=== PATIENT | female | born 1980 | race Caucasian/White ===

== ENCOUNTER → 2021-06-15 09:44 | Outpatient (BNVA) | payer SELFPAY | PROVIDERS: Family Provider Nurse Practitioner Family; PCP Nurse Practitioner Family; Visit Provider Nurse Practitioner Family | DX: G43.909 Migraine, unspecified, not intractable, without status migrainosus (principal); E78.5 Hyperlipidemia, unspecified; F32.9 Major depressive disorder, single episode, unspecified; R53.83 Other fatigue; F41.9 Anxiety disorder, unspecified; E66.9 Obesity, unspecified; M54.16 Radiculopathy, lumbar region; G47.00 Insomnia, unspecified; Z86.39 Personal history of other endocrine, nutritional and metabolic disease; Z12.39 Encounter for other screening for malignant neoplasm of breast; I10 Essential (primary) hypertension | CPT/HCPCS: 80053; 82306; 82607; 84443; 85025 ==

== ENCOUNTER 2022-01-15 13:36 | Outpatient (CLI) | payer OTHER, SELFPAY ==
--- NOTE | 2022-01-15 13:47 | MM_ITS ---
WS: [id number] BILATERAL 3D TOMOSYNTHESIS DIGITAL SCREENING MAMMOGRAPHY WITH CAD CLINICAL INFORMATION: SCREENING HISTORY: Screening mammogram. Pain and soreness RIGHT breast COMPARISON: 015 TECHNIQUE: Bilateral CC and MLO views. FINDINGS: Scattered fibroglandular densities bilaterally. No suspicious focal mass, asymmetry, calcifications, or architectural distortion. No evidence of malignancy. MM/[place] [id number] IMPRESSION: BI-RADS: 1-Negative FOLLOW UP: 1 Year Follow-up Recommend return to annual screening mammography.
== END 2022-01-15 13:37 | disposition home or self-care (01) ==
LOC: RAD 13:42
PROVIDERS: PCP Nurse Practitioner Family; Visit Provider Nurse Practitioner Family
DX: Z12.31 Encounter for screening mammogram for malignant neoplasm of breast (principal)
CPT/HCPCS: 77063; 77067

== ENCOUNTER → 2022-02-13 11:23 | Outpatient (BNVA) | payer OTHER, SELFPAY | PROVIDERS: PCP Nurse Practitioner Family; Visit Provider Nurse Practitioner Family | DX: E78.5 Hyperlipidemia, unspecified (principal); I10 Essential (primary) hypertension; F41.9 Anxiety disorder, unspecified; F32.9 Major depressive disorder, single episode, unspecified; Z90.710 Acquired absence of both cervix and uterus; G43.909 Migraine, unspecified, not intractable, without status migrainosus; N32.81 Overactive bladder; G56.01 Carpal tunnel syndrome, right upper limb; Z86.39 Personal history of other endocrine, nutritional and metabolic disease | CPT/HCPCS: 80053; 80061 ==

== ENCOUNTER 2022-08-30 14:25 | Outpatient (CLI) | payer BC, MEDICAID, SELFPAY ==
--- NOTE | 2022-08-30 14:33 | XR_ITS ---
WS: [id number] Right foot, 3 views, 08/30/2022 Clinical Data: right heel pain Comparison: Right foot, 07/24/2016. Findings: No fractures or dislocations are seen. No bone destruction or erosion is noted. The joint spaces and soft tissues are normal. There is a plantar spur. XR/XR foot RT min 3V* [id number] Impression: Negative right foot.
== END 2022-08-30 14:26 | disposition home or self-care (01) ==
PROVIDERS: PCP Nurse Practitioner Family; Visit Provider Nurse Practitioner Family
DX: M79.671 Pain in right foot (principal)
CPT/HCPCS: 73630

== ENCOUNTER 2022-09-12 13:22 | Outpatient (CLI) | payer BC, MEDICAID, SELFPAY ==
--- NOTE | 2022-09-12 13:33 | MR_ITS ---
WS: [id number] MRI BRAIN WITH AND WITHOUT CONTRAST HISTORY: DEMYELINATING DZ OF CENTRAL NERVOUS SYSTEM COMPARISON: 02/19/2017 TECHNIQUE: Multiplanar imaging performed through the brain with MultiHance 20 ml's IV. No acute infarcts or hemorrhage. Focal minimal T2 hyperintensity along the LEFT callosal septal inter face, anterior. This may have been present on the prior study but not visualized without high resolut ion imaging being performed at that time. There is a very slight increase in the focal FLAIR and T2 s ignal hyperintensity abutting the occipital horn of the posterior RIGHT lateral ventricle with centra l necrosis. No enhancement. No additional hyperintensities identified. No susceptibility artifacts or prior lacunar infarcts. Ventricles and extra-axial spaces are normal. Clivus and pituitary gland are normal. Visualized posterior fossa and brainstem are also normal. Visualized brainstem is normal. Postcontrast images are negative for masses or vascular malformations. No enhancement of the demyelin ating plaques. Dural venous sinuses are normal. Paranasal sinuses: Well aerated with no significant disease. Mastoid air cells: Normal. Calvarium and scalp: Normal. MR/MR head wo/w con [id number] IMPRESSION: 1. No active areas of demyelination. No enhancing hyperintensities surrounding the ventricles. 2. Slight increase in size of the LEFT occipital periventricular white matter lesion since 2017 but no enhancement. 3. Focal nonenhancing T2 hyperintense activity along the LEFT callosal septal interface.
[2022-09-12] MEDS: gadobenate dimeglumine 20 mL vial IV (14:21)
== END 2022-09-12 13:23 | disposition home or self-care (01) ==
LOC: RAD 13:24
PROVIDERS: PCP Nurse Practitioner Family; Visit Provider Specialist
DX: G37.9 Demyelinating disease of central nervous system, unspecified (principal)
CPT/HCPCS: 70553; A9577

== ENCOUNTER → 2022-12-17 13:01 | Outpatient (BNVA) | payer BC, MEDICAID, SELFPAY | PROVIDERS: PCP Nurse Practitioner Family; Visit Provider Nurse Practitioner Family | DX: F41.9 Anxiety disorder, unspecified (principal); I10 Essential (primary) hypertension; F32.9 Major depressive disorder, single episode, unspecified; E78.5 Hyperlipidemia, unspecified | CPT/HCPCS: 80053; 80061; 84443 ==

== ENCOUNTER → 2023-08-05 12:55 | Outpatient (BNVA) | payer BC, MEDICAID, SELFPAY | PROVIDERS: PCP Nurse Practitioner Family; Visit Provider Podiatrist Foot & Ankle Surgery | DX: S82.832G Other fracture of upper and lower end of left fibula, subsequent encounter for closed fracture with delayed healing; X58.XXXD Exposure to other specified factors, subsequent encounter; Y99.0 Civilian activity done for income or pay | CPT/HCPCS: 73630 ==

== ENCOUNTER 2025-03-13 20:21 | Emergency (ER) | payer OTHER, SELFPAY ==
[2025-03-13] VITALS (7 sets, daily range): BP systolic 122–178; BP diastolic 87–140; PULSE 88–108; RESP 16–17; TEMP 36.7; O2SAT 94–98; BMI 37.1
--- OUTSIDE RECORDS SUMMARY | 2025-03-13 20:27 | XMS_ITS | Data Portability ---
Author Organization [facility] Address [address] [place] [address] Assessment No assessment recorded. Plan of Treatment Reminders Order Date Submit Date Provider Last Modified By Organization Details Last Modified Time Details Appointments None record ed. Lab None record ed. Referral None record ed. Procedures None record ed. Surgeries None record ed. Imaging XR, ankle, 3 or more view 023 05/01/20 [email or web address] [facility] ([facility]), [address] [place] [address], [phone], 11:10:39 Medication Orders None record ed. Patient TargetsNo targets recorded. Patient InstructionsNo instructions recorded. Reason for Referral None Reported. Results Created Date Observation Date Name Description Value Unit Range Abnormal Flag Note LastModifiedBy Organization Detail LastModifiedTime 05/01/2005/01/2023 urina lysis , compl ete color yellow Not Available [facility]) [address] [place], [address], 05/01/2023 16:10:01 05/01/20 23 05/01/2023 urina lysis , compl ete clarity cloudy clear Not Available [facility] ([facility]) [address] [place], [address], 05/01/2023 16:10:01 05/01/20 23 05/01/2023 urina lysis , compl ete glucose negati ve negati ve Not Available [facility] ([facility]) [address] [place], [address], 05/01/2023 16:10:01 05/01/20 23 05/01/2023 urina lysis , compl ete bilirubin 1+ negati ve abnormal Not Available [facility] ([facility]) [address] [place], [address], 05/01/2023 16:10:01 05/01/20 23 05/01/2023 urina lysis , compl ete ketones trace negati ve abnormal Not Available [facility] ([facility]) [address] [place], [address], 05/01/2023 16:10:01 05/01/20 23 05/01/2023 urina lysis , compl ete specific gravity 1.030 1.005- 1.025 abnormal Not Available [facility] ([facility]) [address] [place], [address], 05/01/2023 16:10:01 05/01/20 23 05/01/2023 urina lysis , compl ete pH 5.0 5.0-7. 0 Not Available [facility] ([facility]) [address] [place], [address], 05/01/2023 16:10:01 05/01/20 23 05/01/2023 urina lysis , compl ete protein 2+ abnormal Not Available [facility] ([facility]) [address] [place], [address], 05/01/2023 16:10:01 05/01/20 23 05/01/2023 urina lysis , compl ete uro 0.2 Not Available [facility] ([facility]) [address] [place], [address], 05/01/2023 16:10:01 05/01/20 23 05/01/2023 urina lysis , compl ete nitrate negati ve negati ve Not Available [facility] ([facility]) [address] [place], [address], 05/01/2023 16:10:01 05/01/20 23 05/01/2023 urina lysis , compl ete blood negati ve negati ve Not Available [facility] ([facility]) [address] [place], [address], 05/01/2023 16:10:01 05/01/20 23 05/01/2023 urina lysis , compl ete leukocytes negati ve negati ve Not Available [facility] ([facility]) [address] [place], [address], 05/01/2023 16:10:01 05/01/20 23 05/01/2023 urina lysis , compl ete WBC 1-3 0 abnormal Not Available [facility] ([facility]) [address] [place], [address], 05/01/2023 16:10:01 05/01/20 23 05/01/2023 urina lysis , compl ete RBC 0-1 0 Not Available [facility] ([facility]) [address] [place], [address], 05/01/2023 16:10:01 05/01/20 23 05/01/2023 urina lysis , compl ete epi cells 1-3 0 abnormal Not Available [facility] ( [facility]) [address] [place], [address], 05/01/2023 16:10:01 05/01/20 23 05/01/2023 urina lysis , compl ete bacteria 1+ mixed stevan abnormal Not Available [facility] ([facility]) [address] [place], [address], 05/01/2023 16:10:01 05/01/20 23 05/01/2023 urina lysis , compl ete other 3+ amorph ous abnormal Not Available [facility] ([facility]) [address] [place], [address], 05/01/2023 16:10:01 05/05/20 23 05/01/2023 XR, ankle , 3 or more view No observ ation record ed. [email or web address], [address], 05/05/2023 11:48:47 Result Notes None recorded. Medical Equipment None Reported. Allergies Allergen ID Allergen Name Allergen Category Reaction Reaction Severity Criticality Documentation Date Start Date Code Code System Note Provider Name and Address Organization Details Recorded Time 78319 morphine medicatio n Not available Not available Not available 05/01/2023 7052 RxNorm FRED gao [facility], Monique 3 15:36:01 Medications Name Sig Start Date Stop Date Status Note LastModified by Organization Details LastModified Time tolterodine ER 4 mg capsule,exte nded release 24 hr TAKE 1 CAPSULE BY MOUTH ONCE DAILY active Not Available Not Available No t Available phentermine 37.5 mg tablet TAKE 1 TABLET BY MOUTH ONCE DAILY active Not Available Not Available No t Available cyanocobalam in (vit B-12) 1,000 mcg/mL injection solution INJECT 1ML INTRAMUSCUL PHU FOR 4 WEEKS THEN ONCE MONTHLY THEREAFTER active Not Available Not Available N ot Available lisinopril 10 mg tablet TAKE 1 TABLET BY MOUTH ONCE DAILY active Not Available Not Available No t Available BD Luer-Kathe Syringe 3 mL 25 gauge x 1 USE DIRECTED WITH B-12 SHOT active Not Available Not Available No t Available buspirone 7.5 mg tablet TAKE 1 TABLET BY MOUTH TWICE DAILY . APPOINTMENT REQUIRED FOR FUTURE REFILLS active Not Available Not Available No t Available hydrochlorot hiazide 25 mg tablet TAKE 1 TABLET BY MOUTH ONCE DAILY active Not Available Not Available No t Available estradiol 0.5 mg tablet TAKE 1 TABLET BY MOUTH ONCE DAILY active Not Available Not Available No t Available lisinopril 10 mg-hydrochlo rothiazide 12.5 mg tablet TAKE 1 TABLET BY MOUTH ONCE DAILY active Not Available Not Available No t Available methylpredni solone 4 mg tablets in a dose pack TAKE BY MOUTH DIRECTED ON INSIDE OF PACKAGE active Not Available Not Available No t Available metformin ER 500 mg tablet,exten ded release 24 hr TAKE 1 TABLET BY MOUTH ONCE DAILY active Not Available Not Available No t Available progesterone micronized 100 mg capsule TAKE 1 CAPSULE BY MOUTH AT BEDTIME active Not Available Not Available No t Available escitalopram 10 mg tablet TAKE 1 TABLET BY MOUTH ONCE DAILY active Not Available Not Available No t Available escitalopram 20 mg tablet TAKE 1 TABLET BY MOUTH ONCE DAILY active Not Available Not Available No t Available rosuvastatin 20 mg tablet TAKE 1 TABLET BY MOUTH ONCE DAILY active Not Available Not Available No t Available cholecalcife rol (vitamin D3) 1,250 mcg (50,000 unit) capsule TAKE 1 CAPSULE BY MOUTH ONCE A WEEK active Not Available Not Available No t Available Vitals Date Recorded Oxygen saturation Oxygen saturation in Arterial blood by Pulse oximetry Heart rate Respiratory rate Body temperature Provider Name and Address Organization Details Last Updated DateTime 3 98 % 98 % 115 /min 20 /min 97.1 [degF] FRED [facility] 3 15:35:47 Social History None recorded. Functional Status None recorded. Mental Status None recorded. Family History Nothing Reported. Medical History No medical history recorded. Gynecological HistoryNo gynecological history recorded. Obstetrics History GPAL:G 0 P 0 0 0 0 Immunizations Vaccine Type Date Status Note Provider Nam e and Address Organization Details Recorded Time MMR 5 completed [facility] 05/01/2023 15:35:52 [facility] 7 [facility] 05/01/2023 15:35:52 Tdap 7 completed [facility] 05/01/2023 15:35:52 DTP 5 completed [facility], [facility] 05/01/2023 15:35:52 polio, unspecified formulation 5 completed [facility] GREEN murray, [facility] 05/01/2023 15:35:52 Td (adult), 2 Lf tetanus toxoid, preservative free, adsorbed 3 completed [facility], [facility] 05/01/2023 15:35:52 Hep A-Hep B 8 completed [facility] null, [facility] 05/01/2023 15:35:52 Hep A-Hep B 7 [facility] 05/01/2023 15:35:52 Hep A-Hep B 7 [facility] 05/01/2023 15:35:52 Past Encounters Encounter ID Performer Location Encounter Start Date Encounter Closed Date Diagnosis/Indication Diagnosis SNOMED-CT Code Diagnosis ICD10 Code Diagnosis Note [id number] JIM CARBALLO [facility] ([facility]) [address] [place] [phone] 05/01/2023 14:54:20 05/01/2023 19:23:31 Pain of left ankle joint 2960996025 4043472 M25.572 Suspected avulsion fracture of the left fibula. Will send x-ray for over read. Patient given script for walking boot and crutches. Should wear walking boot and weight bear as tolerated until x-ray results are back. RICE treatment recommende d. Can take tylenol/ib uprofen as needed for pain. No work until official x-ray results are back. Will follow up pending x-ray results. Blood in urine 38689130 R31.9 Will check UA today. Will call with results. Reassured with no pain or bruising from fall. Encouraged patient to increase water intake and continue to monitor urine for blood. If persistent for the next 2 days, should follow up with PCP as patient does have history of kidney issues. Patient verbalizes understand ing. Health Concerns Section Related Observation LastModified by Organization Detai ls LastModified Time None Recorded Concern Status LastModified by Organization Details LastModified Time None Recorded Advance Directives Directive None Recorded Payers Insurance Date Sequence Insurance Name Policy Number Policy Nielsen Covered Member ID Nielsen Member ID Guarantor Name 05/10/2023 ANGELES GIL [id number] Aleena Finch Notes Date Note Type Note Provider Name and Address Organization Details Recorded Time 05/01/2023 text/html Musculoskeletal PainReported bypatient.Location:pa in is not radiating; right ankle Quality:sharp Severity:worsening;in terferes with sleep;interferes with work/school Duration:present <1 month Timing:constant; sudden Context:trauma Alleviating Factors:rest Aggravating factors:movement/posi tioning Associated Symptoms:no fever; no weak limbs; no tingling; no numbness of the legs/feet Patient is a 42 year old female who reports to the walk in clinic today for left ankle pain. Patient reports she fell while at work playing a game today, twisting her left ankle. Has been unable to bear weight since. Also reports blood in her urine after the fall. Denies any flank pain today. RAUL ABAD, HEALTH INSURANCE SALES AGENT-C [address] [place] [address], [phone], [facility], [place] 05/01/2023 15:54:52 OBGyn Episode No OBEpisode recorded.
--- OUTSIDE RECORDS SUMMARY | 2025-03-13 20:27 | XMS_ITS | Patient Health Record ---
Author Organization [facility] Address [address] [place], [place] [address] Care Team Providers Care Lehr Attendant Name Role Phone Lea TO, Bret Unavailable [phone] Priya Fletcher Unavailable Unavailable Allergies Allergen (clinical drug ingredient) Drug/Non Drug Allergy documented on EMR Reaction Allergy Type Onset Date Status Endocet itching Drug Allergy Active morphine morphine itcing, redness Drug Allergy A ctive Reason For Referral No Information Medications Medication SIG (Take, Route, Frequency, Duration) Notes Start Date End Date Status topiramate 100 mg 1 tab orally 2 times a day Active FLUoxetine 20 mg 1 tab orally once a day Unknown tiZANidine 2 mg 1 tab po orally TID prn spasm Active estradiol 0.5 mg 1 tab orally once a day Unknown Vitamin D3 2000 intl units 1 tab orally once a day Unknown topiramate 100 mg 1 tab orally 2 times a day Active venlafaxine 150 mg 1 cap orally once a day Active hydrochlorothiazide-lisinop ril 12.5 mg-10 mg 1 tab orally once a day Active SUMAtriptan 100 mg 1 tab orally once Unknown acetaminophen-hydrocodone 325 mg-7.5 mg 1 tab orally QID prn pain (hold within 4H of planned sleep) Active Reglan 10 mg 1 tab orally 4 times a day (before meals and at bedtime) Unknown progesterone 100 mg 1 cap orally once a day (at bedtime) Unknown lisinopril 20 mg 1 tab orally once a day Unknown Hair, Skin, Nails 5 mg 1 cap orally once a day Unknown gabapentin 300 mg 1 cap orally 3 times a day Unknown Social History Tobacco Use: Social History Observation Description Date Details (start date - stop date) Never Smoker NA - NA alcohol Question Answer Notes Did you have a drink contain ing alcohol in the past year? Yes How often did you have a dri nk containing alcohol in the past year? Two to four times a month (2 points) How many drinks did you have on a typical day when you were drinking in the past year? 1 or 2 (0 points) How often did you have six o r more drinks on one occasion in the past year? Never (0 points) Points 2 Interpretation Negative Tobacco use: Question Answer Notes : nonsmoker Problems Problem Type SNOMED Code ICD Code Onset Dates Problem Status W/U Status Risk Notes Problem Solitary sacroiliitis (609543787) Sacroiliitis (720.2) Active confirmed Problem Coccydynia (24387150) Coccydynia (724.79) Active confirmed Problem Spasm (02281252) Muscle spasm (728.85) Active confirmed Problem Low back pain (412369406) Low back pain (724.2) Active confirmed Problem Displacement of lumbar intervertebral disc without myelopathy (00581582) Lumbar (w/out myelopathy) intervertebral disc disorder (722.10) Active confirmed Problem Long-term drug therapy (878104884) LONG-TERM USE MEDS NEC (V58.69) Active confirmed r/o substance abuse Problem Anxiety state (615434255) Anxiety State, other, specified: procedure related (300.09) Active confirmed Problem Solitary sacroiliitis (916320754) Sacroiliitis (720.2) Active confirmed Problem Lumbosacral spondylosis without myelopathy (85750782) Lumbosacral spondylosis without myelopathy (721.3) Active confirmed Problem Solitary sacroiliitis (308912992) Sacroiliitis, not elsewhere classified (M46.1) Active confirmed Problem Low back pain (145627612) Low back pain (M54.5) Active confirmed Problem Lumbosacral spondylosis without myelopathy (87183584) Spondylosis without myelopathy or radiculopathy, lumbar region (M47.816) Active confirmed Problem High risk drug monitoring status (024363092) meterman (current) use of opiate analgesic (Z79.891) Active confirmed Problem Anxiety disorder (829782019) Other specified anxiety disorders (F41.8) Active confirmed Problem Hypersomnia (58048563) Hypersomnia, unspecified (G47.10) Active confirmed Problem Obstructive sleep apnea syndrome (47935323) Obstructive sleep apnea (adult) (pediatric) (G47.33) Active confirmed Problem Right hip pain (256450241454451) Pain in right hip (M25.551) Active confirmed Problem Acquired spondylolisthesis (214809837) Spondylolisthesi s, lumbar region (M43.16) Active confirmed Problem Radiculopathy due to lumbar intervertebral disc disorder (528210590020433) Intervertebral disc disorders with radiculopathy, lumbar region (M51.16) Active confirmed Problem Lumbar radiculopathy (301106020) Radiculopathy, lumbar region (M54.16) Active confirmed Problem Myalgia (51068635) Myalgia (M79.1) Active confi rmed Problem Headache (35416898) Headache (R51) Active confi rmed Problem Jaw pain (926919189) Jaw pain (R68.84) Active confirmed Problem Long-term current use of drug therapy (213859279) 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 helper (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) drug therapy (Z79.899) Active confirmed Problem Muscle pain (78788092) Myalgia, other site (M79.18) Active confirmed Plan Of Treatment No Information Insurance Providers Payer Name Payer Address Payer Phone Subscriber Number Group Number Insured Name Patient Relationship to Insured Coverage Start Date Coverage End Date [employer] [facility] [address] [place] [phone] [id number] Aleena Finch Self - patient is the insured Medical (General) History Medical History History ICD Code Hypertension Palpitations Anxiety disorder Hip pain, right Tachycardia Sciatica Hyperlipidemia Low back pain with radiation Tear of right infraspinatus Tear of right supraspinatus tendon Bilateral leg paresthesia 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 Milo Crook, 12/18/17 Hospitalization History Reason Date(Month/Year) Childbirth, 1998, 2001, 2004
--- NOTE | 2025-03-13 20:41 | ECG_ITS ---
[facility] 2025-[facility]13 Pat Name: Aleena Sanches Department: Room: Gender: Female Disease Management Nurse: : 1980 Requested By: Sameer Pickett Order Number: [id number] Casie MD: Jaxon Oneil M.D. Measurements Intervals [place] Rate: 102 P: 42 VA: 176 QRS: 57 QRSD: 92 T: 28 QT: 329 QTc: 430 Interpretive Statements SINUS TACHYCARDIA POSSIBLE LEFT ATRIAL ENLARGEMENT [-0.1mV P-WAVE IN V1/V2] No previous ECG available for comparison Electronically Signed On 03-17-2025 09:10:40 CDT by Jaxon Oneil M.D. [email or web address]
--- NOTE | 2025-03-13 20:41 | XRR_ITS ---
PROCEDURE INFORMATION: Exam: XR Chest Exam date and time: 03/13/2025 9:05 PM Age: 44 years old Clinical indication: Dyspnea TECHNIQUE: Imaging protocol: Radiologic exam of the chest. Views: 1 view. COMPARISON: No relevant prior studies available. FINDINGS: Lungs: Unremarkable. No consolidation. Pleural spaces: Unremarkable. No pleural effusion. No pneumothorax. Heart/Mediastinum: Unremarkable. No cardiomegaly. Bones/joints: Unremarkable. XR/XR chest 1V portable [id number] IMPRESSION: No acute findings.
--- NOTE | 2025-03-13 20:41 | CTR_ITS ---
PROCEDURE INFORMATION: Exam: CT Head Without Contrast Exam date and time: 03/13/2025 9:50 PM Age: 44 years old Clinical indication: Weakness, extremity; Right; C/O RT upper ext. Numbness. ; Additional info: Right arm numbness TECHNIQUE: Imaging protocol: Computed tomography of the head without contrast. Radiation optimization: All CT scans at this facility use at least one of these dose optimization techniques: automated exposure control; mA and/or kV adjustment per patient size (includes targeted exams where dose is matched to clinical indication); or iterative reconstruction. COMPARISON: MR head wo/w con [id number] 09/12/2022 1:54 PM RADIATION DOSE METRICS: Total DLP (mGy-cm): 1046.78 FINDINGS: Brain: Normal. No hemorrhage. Unremarkable white matter. No mass effect. Cerebral ventricles: No ventriculomegaly. Paranasal sinuses: Visualized sinuses are unremarkable. No fluid levels. Mastoid air cells: Visualized mastoid air cells are well aerated. Bones: Unremarkable. No acute fracture. Soft tissues: Unremarkable. CT/CT head wo con* [id number] IMPRESSION: No acute intracranial abnormality.
[2025-03-13 20:55] LABS: Basophils # 0.1 10^3/uL (0.0-0.1); Basophils % 0.6 %; Eosinophils # 0.2 10^3/uL (0.0-0.8); Eosinophils % 1.7 %; Hematocrit 42.3 % (36-47); Lymphocytes # 3.7 10^3/uL (0.8-4.8); Lymphocytes % 38.2 %; Mean Corpuscular HGB Conc 34.3 g/dL (30-55); Mean Corpuscular Hemoglobin 31.3 pg (27-33); Mean Corpuscular Volume 91.2 fl (85-98); Mean Platelet Volume 10.3 fL (7.4-10.4); Monocytes # 0.7 10^3/uL (0.2-0.9); Monocytes % 7.2 %; Neutrophils % 52.1 %; Nucleated Red Blood Cells % 0 %; Platelet Count 325 10^3/cmm (157-399); Red Blood Count 4.64 10^6/uL (3.85-5.65); Red Cell Distribution Width 11.8 % (12.1-15.1); White Blood Count 9.59 10^3/uL (3.29-11.43)
[2025-03-13 21:12] LABS: Alanine Aminotransferase 39 U/L (0-33); Albumin Level 4.2 g/dL (3.5-5.2); Alkaline Phosphatase 126 U/L (35-105); Anion Gap 17.5 (5-19); Aspartate Amino Transferase 27 U/L (0-32); Blood Urea Nitrogen 14 mg/dL (6-20); Calcium 9.4 mg/dL (8.5-10.5); Carbon Dioxide 25 mmol/L (22-29); Chloride 102 mmol/L (98-107); Globulin 3.3 g/dL (1.3-4.6); Glucose 107 mg/dL (65-115); Osmolality Calculated 293 mOsm/kg (285-295); Potassium 3.5 mmol/L (3.5-5.1); Sodium 141 mmol/L (136-145); Total Bilirubin 0.3 mg/dL (0.15-1.2); Total Protein 7.5 g/dL (6.6-8.7)
--- NOTE | 2025-03-13 21:25 | ED_ITS ---
Documented by User: Sameer Pickett MD 03/19/25 16:45 HPI - Neuro Symptoms/Deficit 2 General: Chief Complaint: Neuro Symptoms/Deficit Stated Complaint: R arm numbness Time Seen by Provider: 03/13/25 20:29 History of Present Illness: Chief complaint is numbness in the right arm. Patient states that she has a history of carpal tunnel on her right arm. She states that sometimes she will wake up and have numbness and tingling in her right hand and difficulty with her load out person. She states that usually goes away after she gets up. She states yesterday morning she woke up and had the same sensation. She states she has some numbness in her right hand and some tingling and she felt like was a little harder to load out person things than normal. She states that it did not go away however and she knows she had a little numbness in her forearm distally just proximal to the wrist as well. She states she decided she should come get checked out. She states the arm is not weak although she states her load out person is not quite as strong as it normally is but otherwise the arm itself is not weak she says. She denies any headache or neck pain. No chest pain or chest discomfort. She states that she does have some slight shortness of breath that she gets when she talks a lot which she states she always thought was because she was just heavyset. She states she has had that for a long time but she has noticed a little bit more for the last week. No pleurisy. No history of PE or DVT. No cough. No hormone therapy. No history of heart problems. No history of asthma or COPD. No black or bloody stools. No cough or hemoptysis. No abdominal pain vomiting or diarrhea. She states that she has not noticed any numbness in her face or legs or weakness anywhere else. No change in vision. No trouble with balance. She states she does have hypertension but she has been out of her medications for at least a month and is not currently taking any medications. Related Data Home Medications ?Medication ?Instructions ?Recorded ?Confirmed buspirone 7.5 mg tablet tab PO 01/21/23 11/27/23 cholecalciferol (vitamin D3) 1,250 ea PO 01/21/2311/13 mcg (50,000 unit) capsule escitalopram oxalate 20 mg tablet ea PO 01/21/2311/26 Previous Rx's ?Medication ?Instructions ?Recorded galcanezumab-gnlm 120 mg/mL 120 mg SUBCUT ONCE #1 mL 0 12/10/22 subcutaneous pen injector (Emgality Pen) galcanezumab-gnlm 120 mg/mL 240 mg (2 mL) SUBCUT ONCE #1 mL 12/10/22 subcutaneous pen injector (Emgality Pen) hydrochlorothiazide 25 mg tablet 25 mg PO DAILY 90 day s #90 tabs 12/17/22 lisinopril 10 mg tablet See Rx Instructions .Route 0 05/12/23 .COMPLEX #30 tabs cyclobenzaprine 10 mg tablet 10 mg PO TID PRN muscle s pasm #30 11/27/23 tabs prednisone 20 mg tablet 60 mg (3 x 20 mg) PO DAILY 5 days 11/27/23 #15 tabs aspirin 81 mg chewable tablet 81 mg PO DAILY #30 tabs 03/13/25 hydrochlorothiazide 25 mg tablet 25 mg PO QAM #30 tabs 03/13/25 lisinopril 10 mg tablet 10 mg PO DAILY #30 tabs 02/14 06/09 Allergies Allergy/AdvReac Type Severity Reaction Status Date / Time Opioids - Morphine Analogues Allergy unknown Verified 11/27/23 10:02 [facility] ED 2 PFSH: Medical History Depression Anxiety Sleep apnea with use of continuous positive airway pressure (CPAP) Insomnia Hypertension Hyperlipidemia Surgical History History of hysterectomy History of carpal tunnel surgery Family History Other Cancer Chronic kidney disease (CKD) Dementia Diabetes Hyperlipidemia Hypertension Social History Smoking and tobacco/nicotine status: never used tobacco/nicotine Alcohol intake: never Substance/Drug Use: never Physical Exam 2 Narrative: EXAM NARRATIVE: Patient sitting up very talkative mildly anxious but no acute distress otherwise. Pupils equal reactive to light. Grossly intact visual petersen. Normal conjunctiva. Full range ocular motion. No facial droop. No drift in her arms or legs. She has intact sensation to light touch over her face and trunk but she reports slight decrease sensation over the distal right forearm and right hand compared to the left. She states she is uncertain but there may be a slight stronger sensation on the left leg than the right leg with light touch to the right leg. No tenderness over her neck. Her neck is supple. No vertebral tenderness of her back. Heart is regular rate and rhythm. Lung sounds are clear. No increased work of breathing. She is talking at length in full sentences. No accessory muscle use. Abdomen soft nontender. Extremities warm well-perfused. No calf tenderness or pitting edema. Intact pulse in the right foot dorsalis pedis and right radial artery. Course 2 Vital Signs: Vital signs: Vital Signs Temperature 98.0 F 03/13/25 20:29 Pulse Rate 88 03/13/25 23:40 Respiratory Rate 16 03/13/25 23:40 Blood Pressure 122/87 03/13/25 23:40 Pulse Oximetry 98 03/13/25 23:40 Oxygen Delivery Me thod Room Air 03/13/25 22:30 MDM - Neuro Symptoms/Deficit Medical Decision Making Patient is alert oriented talkative complaining of numbness and tingling in her right hand. She did not notice any in her leg however on exam she states it does seem like it may be slightly stronger on the left leg compared to the right leg which she is uncertain. I have examined her multiple areas of her right and left leg and she changes her mind several times during the exam and is uncertain if there is any asymmetry. She has no asymmetry on her face. She has no drift in her arms or legs and no discernible weakness in her hands with load out person. She moves her neck and shoulder and elbow freely and denies any pain in her neck head shoulder elbow. Certainly stroke considered with right arm numbness and reported some difficulty with load out person strength however this has been a process she is experienced in the past with the carpal tunnel but this was more persistent. Nerve impingement in her neck shoulder elbow wrist or other area considered. Stroke in the differential. Electrolyte abnormality, referred numbness from cardiac ischemia, broad differential. She denies any chest pain or chest discomfort or upper back ache or discomfort to suggest acute cardiac ischemia. Patient EKG is ordered and shows to my interpretation sinus tachycardia with rate [address] segment changes. Patient did report some mild shortness of breath over the last week when she is talking she notices it. None here currently. PE would be unlikely based on exam and history. She denies pleurisy or recent immobility or leg pain or swelling. Will obtain CT of the head. Patient not a TNK candidate or thrombectomy candidate with last known well 2 nights ago. Will check CBC CMP to check electrolytes and hemoglobin. Will screen her troponin and a single negative troponin with more than 2 days of symptoms would make cardiac ischemia very unlikely. Patient's white count returned normal. Electrolytes do not show significant acute abnormality to explain her symptoms. Her creatinine was not significant elevated. Glucose was 107. Patient states she has decided she wants to go home. I recommended admission to the hospital for further blood pressure control and management, neurologic evaluation MRI of the brain and further evaluation of other potential causes of her symptoms. Patient thinks me but she declines admission and states that she wants to go home. She states she has not noticed any numbness or tingling in her leg and she thinks that is just something old probably from a pinched nerve and does not think that it is anything like her arm and hand. She states her hand symptoms are exactly like her carpal tunnel syndrome that she has had many times before and she will have to wear her brace when it flares up like this. She states she had surgery on her left hand because of this. She states she just got worried because her blood pressure medicine was out and she knows her blood pressure runs high and she states she had a little bit of the numbness she felt in her wrist as well and her hand numbness was not going away so she states she decided to come get checked out. I advised patient however that this could be a warning sign and a mild stroke and she could subsequently have a more serious stroke. Also advised other potential causes of her symptoms. CHF, PE, MD, stroke, hypertensive crisis, nerve impingement in the neck shoulder elbow, among others. Patient thanks me but she wants outpatient management. She states she has a brace and she can start wearing it. I advised her to follow-up with her surgeon who did surgery on her left hand in case she does have worsening carpal tunnel or nerve entrapment. Advised to return if she changes her mind for any reason. If no evidence of acute process on CT will start her back on lisinopril and hydrochlorothiazide which she has been off of for more than a month. I advise close monitoring of her blood pressure and close follow- up with her doctor for further evaluation and management. Patient capable and informed understands limits of ED evaluation and reasoning for recommended admission for further testing and treatment and evaluation. She understands I cannot exclude stroke. I recommend she start taking baby aspirin daily and talk to her doctor about other medications for cholesterol and her blood pressure and continued monitoring. Will start her on short course of steroids as well. Patient endorsed to Dr. Menezes at [phone]. Lab Data 03/13/25 20:45 03/13/25 20:[address] 03/13/25 20:41 IMPRESSION: No acute intracranial abnormality. Chest X-Ray 03/13/25 22:09 IMPRESSION: No acute findings. Laboratory Results WBC 9.59 10^3/uL (3.29-11.43) 03/13/25 20:45 RBC 4.64 10^6/uL (3.85-5.65) 03/13/25 20:45 Hgb 14.50 g/dL (11.27-16.99) 03/13/25 20:45 Hct 42.3 % (36-47) 03/13/25 20:45 MCV 91.2 fl (85-98) 03/13/25 20:45 MCH 31.3 pg (27-33) 03/13/25 20:45 MCHC 34.3 g/dL (30-55) 03/13/25 20:45 RDW 11.8 % (12.1-15.1) L 03/13/25 20:45 Plt Count 325 10^3/cmm (157-399) 03/13/25 20:45 MPV 10.3 fL (7.4-10.4) 03/13/25 20:45 Neut % (Auto) 52.1 % 03/13/25 20:45 Lymph % (Auto) 38.2 % 03/13/25 20:45 Young % (Auto) 7.2 % 03/13/25 20:45 Eos % (Auto) 1.7 % 03/13/25 20:45 Baso % (Auto) 0.6 % 03/13/25 20:45 Neut # (Auto) 5.00 10^3/uL (1.8-7.7) 03/13/25 20:45 Lymph # (Auto) 3.7 10^3/uL (0.8-4.8) 03/13/25 20:45 Young # (Auto) 0.7 10^3/uL (0.2-0.9) 03/13/25 20:45 Eos # (Auto) 0.2 10^3/uL (0.0-0.8) 03/13/25 20:45 Baso # (Auto) 0.1 10^3/uL (0.0-0.1) 03/13/25 20:45 Nucleated RBC % (auto) 0 % 03/13/25 20:45 Nucleated RBCs # 0.0 /100WBC 03/13/25 20:45 Sodium 141 mmol/L (136-145) 03/13/25 20:45 Potassium 3.5 mmol/L (3.5-5.1) 03/13/25 20:45 Chloride 102 mmol/L (98-107) 03/13/25 20:45 Carbon Dioxide 25 mmol/L (22-29) 03/13/25 20:45 Anion Gap 17.5 (5-19) 03/13/25 20:45 BUN 14 mg/dL (6-20) 03/13/25 20:45 Creatinine 0.9 mg/dL (0.5-0.9) 03/13/25 20:45 GFR Calculation 68.0 mL/min (90-130) L 03/13/25 20:45 Glucose 107 mg/dL (65-115) 03/13/25 20:45 Calculated Osmolality 293 mOsm/kg (285-295) 03/13/25 20:45 Calcium 9.4 mg/dL (8.5-10.5) 03/13/25 20:45 Total Bilirubin 0.3 mg/dL (0.15-1.2) 03/13/25 20:45 AST 27 U/L (0-32) 03/13/25 20:45 ALT 39 U/L (0-33) H 03/13/25 20:45 Alkaline Phosphatase 126 U/L (35-105) H 03/13/25 20:45 Troponin T Baseline 9 ng/L (0-10) 03/13/25 22:07 Total Protein 7.5 g/dL (6.6-8.7) 03/13/25 20:45 Albumin 4.2 g/dL (3.5-5.2) 03/13/25 20:45 Globulin 3.3 g/dL (1.3-4.6) 03/13/25 20:45 Discharge Plan Discharge Patient Disposition: Home Clinical Impression: Hypertensive urgency, Numbness and tingling in right hand Condition: Stable Prescriptions: New hydrochlorothiazide 25 mg tablet 25 mg PO QAM Qty: 30 0RF lisinopril 10 mg tablet 10 mg PO DAILY Qty: 30 0RF aspirin 81 mg tablet,chewable 81 mg PO DAILY Qty: 30 0RF No Action Emgality Pen 120 mg/mL pen injector 240 mg SUBCUT ONCE Qty: 1 0RF Rx Instructions: INJECT INITIAL LOADING DOSE (240MG /2ML) FOR FIRST MONTH. Emgality Pen 120 mg/mL pen injector 120 mg SUBCUT ONCE Qty: 1 2RF Rx Instructions: TAKE ONCE A MONTH FOR FOLLOWING MONTHS buspirone 7.5 mg tablet PO escitalopram oxalate 20 mg tablet PO cholecalciferol (vitamin D3) 1,250 mcg (50,000 unit) capsule PO hydrochlorothiazide 25 mg tablet 25 mg PO DAILY 90 Days Qty: 90 0RF cyclobenzaprine 10 mg tablet 10 mg PO TID PRN (Reason: muscle spasm) Qty: 30 0RF prednisone 20 mg tablet 60 mg PO DAILY 5 Days Qty: 15 0RF lisinopril 10 mg tablet See Rx Instructions .ROUTE .COMPLEX Qty: 30 0RF Dose Instruction: Take 1 tablet by mouth once daily Rx Instructions: Take 1 tablet by mouth once daily Discharge Orders: Discharge ED (Routine); Ordered 03/13/25 Ordered By: Lev Menezes Referrals: Qiana Larkin WHNP [Primary Care Provider, [employer]] Patient Instructions: Patient Portal & Jadiel Instructions Activity Restrictions/Additional Instructions: As discussed I recommend further evaluation and treatment of your hypertension and evaluation of your symptoms. Please return if you change your mind for any reason. Please return immediately if concerning headache, new numbness weakness or tingling in your arms or legs, change in vision, chest pain shortness of breath or headache, fever, vomiting, worsening weakness in your hand, any worse or concerns. Please follow-up promptly with your primary care physician for further blood pressure management and evaluation of your symptoms. Please follow-up with your physician who manages your carpal tunnel for further evaluation of your right hand numbness as well. No repetitive use of the right hand. Use your brace as directed. Follow-up on your test results with your doctor. Monitor your blood pressure daily and follow-up to recheck your blood pressure with your doctor. Please come back immediately if you change your mind for any reason. Follow-up with your doctor this week. Please call for appointment as soon as possible this week. 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 [employer] Fwd Documented by User: Lev Menezes, DO 03/14/25 02:57 HPI - Neuro Symptoms/Deficit 2 General: Chief Complaint: Neuro Symptoms/Deficit Stated Complaint: R arm numbness Time Seen by Provider: 03/13/25 20:29 Related Data Home Medications ?Medication ?Instructions ?Recorded ?Confirmed buspirone 7.5 mg tablet tab PO 01/21/23 11/27/23 cholecalciferol (vitamin D3) 1,250 ea PO 01/21/2311/13 mcg (50,000 unit) capsule escitalopram oxalate 20 mg tablet ea PO 01/21/2311/26 Previous Rx's ?Medication ?Instructions ?Recorded galcanezumab-gnlm 120 mg/mL 120 mg SUBCUT ONCE #1 mL 0 12/10/22 subcutaneous pen injector (Emgality Pen) galcanezumab-gnlm 120 mg/mL 240 mg (2 mL) SUBCUT ONCE #1 mL 12/10/22 subcutaneous pen injector (Emgality Pen) hydrochlorothiazide 25 mg tablet 25 mg PO DAILY 90 day s #90 tabs 12/17/22 lisinopril 10 mg tablet See Rx Instructions .Route 0 05/12/23 .COMPLEX #30 tabs cyclobenzaprine 10 mg tablet 10 mg PO TID PRN muscle s pasm #30 11/27/23 tabs prednisone 20 mg tablet 60 mg (3 x 20 mg) PO DAILY 5 days 11/27/23 #15 tabs aspirin 81 mg chewable tablet 81 mg PO DAILY #30 tabs 03/13/25 hydrochlorothiazide 25 mg tablet 25 mg PO QAM #30 tabs 03/13/25 lisinopril 10 mg tablet 10 mg PO DAILY #30 tabs 02/14 06/09 Allergies Allergy/AdvReac Type Severity Reaction Status Date / Time Opioids - Morphine Analogues Allergy unknown Verified 11/27/23 10:02 PFSH ED 2 PFSH: Medical History Depression Anxiety Sleep apnea with use of continuous positive airway pressure (CPAP) Insomnia Hypertension Hyperlipidemia Surgical History History of hysterectomy History of carpal tunnel surgery Family History Other Cancer Chronic kidney disease (CKD) Dementia Diabetes Hyperlipidemia Hypertension Social History Smoking and tobacco/nicotine status: never used tobacco/nicotine Alcohol intake: never Substance/Drug Use: never Course 2 Vital Signs: Vital signs: Vital Signs Temperature 98.0 F 03/13/25 20:29 Pulse Rate 88 03/13/25 23:40 Respiratory Rate 16 03/13/25 23:40 Blood Pressure 122/87 03/13/25 23:40 Pulse Oximetry 98 03/13/25 23:40 Oxygen Delivery Me thod Room Air 03/13/25 22:30 MDM - Neuro Symptoms/Deficit Medical Decision Making Patient is alert oriented talkative complaining of numbness and tingling in her right hand. She did not notice any in her leg however on exam she states it does seem like it may be slightly stronger on the left leg compared to the right leg which she is uncertain. I have examined her multiple areas of her right and left leg and she changes her mind several times during the exam and is uncertain if there is any asymmetry. She has no asymmetry on her face. She has no drift in her arms or legs and no discernible weakness in her hands with load out person. She moves her neck and shoulder and elbow freely and denies any pain in her neck head shoulder elbow. Certainly stroke considered with right arm numbness and reported some difficulty with load out person strength however this has been a process she is experienced in the past with the carpal tunnel but this was more persistent. Nerve impingement in her neck shoulder elbow wrist or other area considered. Stroke in the differential. Electrolyte abnormality, referred numbness from cardiac ischemia, broad differential. She denies any chest pain or chest discomfort or upper back ache or discomfort to suggest acute cardiac ischemia. Patient EKG is ordered and shows to my interpretation sinus tachycardia with rate [address] segment changes. Patient did report some mild shortness of breath over the last week when she is talking she notices it. None here currently. PE would be unlikely based on exam and history. She denies pleurisy or recent immobility or leg pain or swelling. Will obtain CT of the head. Patient not a TNK candidate or thrombectomy candidate with last known well 2 nights ago. Will check CBC CMP to check electrolytes and hemoglobin. Will screen her troponin and a single negative troponin with more than 2 days of symptoms would make cardiac ischemia very unlikely. Patient's white count returned normal. Electrolytes do not show significant acute abnormality to explain her symptoms. Her creatinine was not significant elevated. Glucose was 107. Patient states she has decided she wants to go home. I recommended admission to the hospital for further blood pressure control and management, neurologic evaluation MRI of the brain and further evaluation of other potential causes of her symptoms. Patient thinks me but she declines admission and states that she wants to go home. She states she has not noticed any numbness or tingling in her leg and she thinks that is just something old probably from a pinched nerve and does not think that it is anything like her arm and hand. She states her hand symptoms are exactly like her carpal tunnel syndrome that she has had many times before and she will have to wear her brace when it flares up like this. She states she had surgery on her left hand because of this. She states she just got worried because her blood pressure medicine was out and she knows her blood pressure runs high and she states she had a little bit of the numbness she felt in her wrist as well and her hand numbness was not going away so she states she decided to come get checked out. I advised patient however that this could be a warning sign and a mild stroke and she could subsequently have a more serious stroke. Also advised other potential causes of her symptoms. CHF, PE, MD, stroke, hypertensive crisis, nerve impingement in the neck shoulder elbow, among others. Patient thanks me but she wants outpatient management. She states she has a brace and she can start wearing it. I advised her to follow-up with her surgeon who did surgery on her left hand in case she does have worsening carpal tunnel or nerve entrapment. Advised to return if she changes her mind for any reason. If no evidence of acute process on CT will start her back on lisinopril and hydrochlorothiazide which she has been off of for more than a month. I advise close monitoring of her blood pressure and close follow- up with her doctor for further evaluation and management. Patient capable and informed understands limits of ED evaluation and reasoning for recommended admission for further testing and treatment and evaluation. She understands I cannot exclude stroke. I recommend she start taking baby aspirin daily and talk to her doctor about other medications for cholesterol and her blood pressure and continued monitoring. Will start her on short course of steroids as well. Patient endorsed to Dr. Menezes at [phone]. Patient checked out to follow-up on PA and lateral chest, which does not show significant mediastinal widening. With improvement in her symptoms, and blood pressure, she will be allowed discharge home as above. Lab Data 03/13/25 20:45 03/13/25 20:[address] 03/13/25 20:41 IMPRESSION: No acute intracranial abnormality. Chest X-Ray 03/13/25 22:09 IMPRESSION: No acute findings. Laboratory Results WBC 9.59 10^3/uL (3.29-11.43) 03/13/25 20:45 RBC 4.64 10^6/uL (3.85-5.65) 03/13/25 20:45 Hgb 14.50 g/dL (11.27-16.99) 03/13/25 20:45 Hct 42.3 % (36-47) 03/13/25 20:45 MCV 91.2 fl (85-98) 03/13/25 20:45 MCH 31.3 pg (27-33) 03/13/25 20:45 MCHC 34.3 g/dL (30-55) 03/13/25 20:45 RDW 11.8 % (12.1-15.1) L 03/13/25 20:45 Plt Count 325 10^3/cmm (157-399) 03/13/25 20:45 MPV 10.3 fL (7.4-10.4) 03/13/25 20:45 Neut % (Auto) 52.1 % 03/13/25 20:45 Lymph % (Auto) 38.2 % 03/13/25 20:45 Young % (Auto) 7.2 % 03/13/25 20:45 Eos % (Auto) 1.7 % 03/13/25 20:45 Baso % (Auto) 0.6 % 03/13/25 20:45 Neut # (Auto) 5.00 10^3/uL (1.8-7.7) 03/13/25 20:45 Lymph # (Auto) 3.7 10^3/uL (0.8-4.8) 03/13/25 20:45 Young # (Auto) 0.7 10^3/uL (0.2-0.9) 03/13/25 20:45 Eos # (Auto) 0.2 10^3/uL (0.0-0.8) 03/13/25 20:45 Baso # (Auto) 0.1 10^3/uL (0.0-0.1) 03/13/25 20:45 Nucleated RBC % (auto) 0 % 03/13/25 20:45 Nucleated RBCs # 0.0 /100WBC 03/13/25 20:45 Sodium 141 mmol/L (136-145) 03/13/25 20:45 Potassium 3.5 mmol/L (3.5-5.1) 03/13/25 20:45 Chloride 102 mmol/L (98-107) 03/13/25 20:45 Carbon Dioxide 25 mmol/L (22-29) 03/13/25 20:45 Anion Gap 17.5 (5-19) 03/13/25 20:45 BUN 14 mg/dL (6-20) 03/13/25 20:45 Creatinine 0.9 mg/dL (0.5-0.9) 03/13/25 20:45 GFR Calculation 68.0 mL/min (90-130) L 03/13/25 20:45 Glucose 107 mg/dL (65-115) 03/13/25 20:45 Calculated Osmolality 293 mOsm/kg (285-295) 03/13/25 20:45 Calcium 9.4 mg/dL (8.5-10.5) 03/13/25 20:45 Total Bilirubin 0.3 mg/dL (0.15-1.2) 03/13/25 20:45 AST 27 U/L (0-32) 03/13/25 20:45 ALT 39 U/L (0-33) H 03/13/25 20:45 Alkaline Phosphatase 126 U/L (35-105) H 03/13/25 20:45 Troponin T Baseline 9 ng/L (0-10) 03/13/25 22:07 Total Protein 7.5 g/dL (6.6-8.7) 03/13/25 20:45 Albumin 4.2 g/dL (3.5-5.2) 03/13/25 20:45 Globulin 3.3 g/dL (1.3-4.6) 03/13/25 20:45 All radiology interpretation(s) finalized by discharge Discharge Plan Discharge Patient Disposition: Home Clinical Impression: Hypertensive urgency, Numbness and tingling in right hand Condition: Stable Prescriptions: New hydrochlorothiazide 25 mg tablet 25 mg PO QAM Qty: 30 0RF lisinopril 10 mg tablet 10 mg PO DAILY Qty: 30 0RF aspirin 81 mg tablet,chewable 81 mg PO DAILY Qty: 30 0RF No Action Emgality Pen 120 mg/mL pen injector 240 mg SUBCUT ONCE Qty: 1 0RF Rx Instructions: INJECT INITIAL LOADING DOSE (240MG /2ML) FOR FIRST MONTH. Emgality Pen 120 mg/mL pen injector 120 mg SUBCUT ONCE Qty: 1 2RF Rx Instructions: TAKE ONCE A MONTH FOR FOLLOWING MONTHS buspirone 7.5 mg tablet PO escitalopram oxalate 20 mg tablet PO cholecalciferol (vitamin D3) 1,250 mcg (50,000 unit) capsule PO hydrochlorothiazide 25 mg tablet 25 mg PO DAILY 90 Days Qty: 90 0RF cyclobenzaprine 10 mg tablet 10 mg PO TID PRN (Reason: muscle spasm) Qty: 30 0RF prednisone 20 mg tablet 60 mg PO DAILY 5 Days Qty: 15 0RF lisinopril 10 mg tablet See Rx Instructions .ROUTE .COMPLEX Qty: 30 0RF Dose Instruction: Take 1 tablet by mouth once daily Rx Instructions: Take 1 tablet by mouth once daily Discharge Orders: Discharge ED (Routine); Ordered 03/13/25 Ordered By: Lev Menezes Referrals: Qiana Larkin WHNP [Primary Care Provider, [facility] [employer]] Patient Instructions: Patient Portal & Jadiel Instructions Activity Restrictions/Additional Instructions: As discussed I recommend further evaluation and treatment of your hypertension and evaluation of your symptoms. Please return if you change your mind for any reason. Please return immediately if concerning headache, new numbness weakness or tingling in your arms or legs, change in vision, chest pain shortness of breath or headache, fever, vomiting, worsening weakness in your hand, any worse or concerns. Please follow-up promptly with your primary care physician for further blood pressure management and evaluation of your symptoms. Please follow-up with your physician who manages your carpal tunnel for further evaluation of your right hand numbness as well. No repetitive use of the right hand. Use your brace as directed. Follow-up on your test results with your doctor. Monitor your blood pressure daily and follow-up to recheck your blood pressure with your doctor. Please come back immediately if you change your mind for any reason. Follow-up with your doctor this week. Please call for appointment as soon as possible this week. 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 Santhosh Rico
--- NOTE | 2025-03-13 22:09 | XRR_ITS ---
PROCEDURE INFORMATION: Exam: XR Chest Exam date and time: 03/13/2025 10:26 PM Age: 44 years old Clinical indication: Dyspnea and other: Concern for widened mediastinum; Dyspnea. Concern for possible widened mediastinum on port cxr. TECHNIQUE: Imaging protocol: Radiologic exam of the chest. Views: 2 views. COMPARISON: CR (CHEST, ) 03/13/2025 9:05 PM FINDINGS: Lungs: Unremarkable. No consolidation. Pleural spaces: Unremarkable. No pleural effusion. No pneumothorax. Heart/Mediastinum: Unremarkable. No cardiomegaly. Bones/joints: Unremarkable. XR/XR chest 2V* [id number] IMPRESSION: No acute findings.
[2025-03-13 22:35] LABS: Troponin(5th) Baseline 9 ng/L (0-10)
== END 2025-03-13 23:46 | disposition home or self-care (01) ==
PROVIDERS: Emergency Provider Emergency Medicine; PCP Nurse Practitioner Women's Health
DX: I16.0 Hypertensive urgency (principal); R20.0 Anesthesia of skin; I10 Essential (primary) hypertension; E78.5 Hyperlipidemia, unspecified
CPT/HCPCS: 36415; 70450; 71045; 71046; 80053; 84484; 85025; 93005; 99285